=== PATIENT | female | born 1940 | race Two or more races ===

== ENCOUNTER 2020-02-04 16:17 | Inpatient (IN) | payer OTHER ==
[~2020-02-04] VITALS: Ht 190.5 cm; Wt 87.2 kg
[2020-02-04] MEDS ORDERED: Z GUARD REMEDY PASTE 57 GM TUBE TOP PRN (20:00)
[2020-02-04] MEDS ORDERED: MAGNESIUM HYDROXIDE 30 ML LIQUID UDC PO PRN (20:15)
[2020-02-04] MEDS ORDERED: AMLO10TA7 PO (20:56)
[2020-02-04] MEDS ORDERED: AMOX500C2 PO (20:57)
[2020-02-04 20:58] VITALS: BP 127/59
[2020-02-04] MEDS ORDERED: CLAR-45 PO (20:58)
[2020-02-04] MEDS ORDERED: VALSARTAN 160 MG TABLET PO SCH (21:00)
[2020-02-04] MEDS ORDERED: MEMANTINE HCL 10 MG TABLET PO SCH (21:00)
[2020-02-04] MEDS ORDERED: VALS160T2 PO (21:04)
[2020-02-04] MEDS ORDERED: PANT40TA2 PO (21:04)
[2020-02-04] MEDS ORDERED: MAGN400O6 PO (21:04)
[2020-02-04] MEDS ORDERED: METH4TAB17 PO (21:04)
[2020-02-04] MEDS ORDERED: CHOL200013 (21:07)
[2020-02-04] MEDS ORDERED: DONE10TA11 PO (21:07)
[2020-02-04] MEDS ORDERED: SITA100T PO (21:07)
[2020-02-04] MEDS ORDERED: MEMA10TA PO (21:07)
--- NOTE | 2020-02-04 23:05 | NUR ---
per ady in pharmacy to give methylprednisolone 4mg bid tomorrow then 1 dose daily to complete methylprednisolone roshan.
--- NOTE | 2020-02-04 23:58 | NUR ---
received a 79 yr old female admitted from [facility] with diagnosis of bowel perforation. S/P explor-laparoscopy,total colectomy. AAOx3-4 Hx of HTN, DM, hyperlipidemia, morbid obesity, dementia. Abdominal dressing intact. Patient has right sided ileostomy with soft brownish liquidy stool noted. On contact isolation, ESBL in urine. VSS. Needs attended. Skin intact. Dr Phillips aware of patient's admission. Dr. Muhammad (admitting) aware of patient's admission to Room 323 to reconcile orders. Fall precautions maintained. Patient has a right upper arm PICC triple lumen. Call alas within reach. Siderails up for safety.patient incontinent of urine. Kept clean and dry. Will monitor patient.
[2020-02-05 03:55] VITALS: BP 144/69
--- NOTE | 2020-02-05 06:20 | NUR ---
End of shift note: Slept at short intervals. no distress noted. Voiding well in the bedpan. Right ileostomy draining liquidy stool. I & O monitor. No complaints presented during shift. Kept comfortable. VSS.
--- NOTE | 2020-02-05 06:48 | NUR ---
patient has been having crying spells on and off this shift. Patient was very adamant of going home although explained it to her that she is here for rehab. She said she wanted to see her daughter. Patient keeps on crying. Told her we will get in touch with your daughter.
[2020-02-05] MEDS ORDERED: PANTOPRAZOLE SODIUM 40 MG TABLET.DR PO SCH (07:00)
[2020-02-05 08:03] VITALS: BP 134/63
[2020-02-05 08:36] LABS: BASOPHILS % (AUTO) 0.2 % (0.0-2.0); EOSINOPHILS % (AUTO) 0.3 % (0.0-7.0); HEMATOCRIT 32.9 % (31.2-41.9); HEMOGLOBIN 10.7 g/dL (10.9-14.3); LYMPHOCYTES # (AUTO) 1.6 K/uL (20.0-40.0); LYMPHOCYTES % (AUTO) 11.4 % (20.5-51.5); MEAN CORPUSCULAR HGB CONC 32 g/dL (32.3-35.6); MEAN CORPUSCULAR VOLUME 86.4 fL (75.5-95.3); MONOCYTES # (AUTO) 1.5 K/uL (2.0-10.0); MONOCYTES % (AUTO) 10.8 % (0.0-11.0); NEUTROPHILS # (AUTO) 10.6 K/uL (1.8-8.9); NEUTROPHILS % (AUTO) 77.3 % (38.5-71.5); PLATELET COUNT (AUTO) 487 K/uL (179-408); RED BLOOD CELL COUNT(AUTO) 3.81 MIL/uL (3.63-4.92); WHITE BLOOD COUNT (AUTO) 13.7 K/uL (3.8-11.8)
[2020-02-05 08:42] LABS: MAGNESIUM 1.6 mg/dL (1.8-2.4); PHOSPHOROUS 2.9 mg/dL (2.5-4.9); POTASSIUM 4.5 mmol/L (3.5-5.1)
[2020-02-05] MEDS ORDERED: methylPREDNISolone 4 MG TABLET PO ONE ×3 (09:00→17:00)
[2020-02-05] MEDS ORDERED: CLARITHROMYCIN 250 MG TABLET PO SCH (09:00)
[2020-02-05] MEDS ORDERED: AMLODIPINE 10 MG TABLET PO SCH (09:00)
[2020-02-05] MEDS ORDERED: methylPREDNISolone 4 MG TABLET PO SCH (09:00)
[2020-02-05] MEDS ORDERED: AMOXICILLIN-CLAVUL 500-125MG TABLET PO SCH (09:00)
[2020-02-05] MEDS ORDERED: DONEPEZIL 10 MG TABLET PO SCH (09:00)
[2020-02-05] MEDS ORDERED: CHOLECALCIFEROL 400 UNITS TABLET PO SCH (09:00)
[2020-02-05] MEDS ORDERED: MAGNESIUM HYDROXIDE 30 ML LIQUID UDC PO SCH (12:00)
[2020-02-05] MEDS ORDERED: PRED2.5T PO (12:10)
[2020-02-05] MEDS ORDERED: MAGNESIUM OXIDE 400 MG TABLET PO ONE (12:15)
--- NOTE | 2020-02-05 13:45 | NUR ---
Pt received, crying about wanting to be discharged. Plan of care discussed with Pt. Pt denies pain, no acute distress or SOB noted. Able to make needs known. Assisted to void using urinal. VSS. All comfort and safety needs implemented at this time. Medications reconciled by MD. New orders received. Call light placed within reach. Change of assignment report and endorsements given to day shift RN.
--- NOTE | 2020-02-05 13:57 | NUR ---
Pt returned as a change of assignment. No acute distress at this time. Will continue to monitor.
[2020-02-05] MEDS: CLINDAMYCIN HCL 300 MG CAPSULE PO SCH ×2 (14:23→21:16)
[2020-02-05 15:51] VITALS: BP 156/69
[2020-02-05] MEDS: AMOXIcillin 500 MG CAPSULE PO SCH (16:42)
[2020-02-05] MEDS: PANTOPRAZOLE SODIUM 40 MG TABLET.DR PO SCH (16:42)
[2020-02-05] MEDS: predniSONE 5 MG TABLET PO SCH (16:42)
[2020-02-05] MEDS ORDERED: predniSONE 2.5 MG TABLET PO SCH (17:00)
[2020-02-05] MEDS ORDERED: CLARITHROMYCIN PO SCH (17:00)
[2020-02-05 20:20] VITALS: BP 130/66
[2020-02-05] MEDS: MEMANTINE HCL 10 MG TABLET PO SCH (20:21)
[2020-02-05] MEDS: VALSARTAN 160 MG TABLET PO SCH (20:21)
--- NOTE | 2020-02-05 21:38 | NUR ---
awake alert and oriented x3-4 VSS no acute distress noted. Attended to needs. Tolerated po meds well. on po antibiotic given as scheduled. No ill effects noted. Right side ileostomy intact with brownish stools noted. Voiding well in bedpan. Contact isolation maintained, for ESBL in urine. VSS. Kept comfortable. Will monitor patient. Abdominal dressing clean dry and intact. Denies any pain nor any discomfort.
[2020-02-06 05:10] VITALS: BP 142/73
[2020-02-06] MEDS: CLINDAMYCIN HCL 300 MG CAPSULE PO SCH ×3 (05:37→21:33)
[2020-02-06 06:27] LABS: BASOPHILS % (AUTO) 0.1 % (0.0-2.0); EOSINOPHILS % (AUTO) 0.4 % (0.0-7.0); HEMATOCRIT 32.2 % (31.2-41.9); HEMOGLOBIN 10.5 g/dL (10.9-14.3); LYMPHOCYTES # (AUTO) 1.5 K/uL (20.0-40.0); LYMPHOCYTES % (AUTO) 12.2 % (20.5-51.5); MEAN CORPUSCULAR HEMOGLOBIN 28.2 uug (24.7-32.8); MEAN CORPUSCULAR HGB CONC 33 g/dL (32.3-35.6); MEAN CORPUSCULAR VOLUME 86.8 fL (75.5-95.3); MONOCYTES # (AUTO) 1.3 K/uL (2.0-10.0); MONOCYTES % (AUTO) 10.3 % (0.0-11.0); NEUTROPHILS # (AUTO) 9.4 K/uL (1.8-8.9); PLATELET COUNT (AUTO) 429 K/uL (179-408); WHITE BLOOD COUNT (AUTO) 12.2 K/uL (3.8-11.8)
--- NOTE | 2020-02-06 06:30 | NUR ---
End of shift note: Patient slept at short intervals. Sleepin on and off. Needs attended. Voiding well in bedpan. No BM noted this shift. VSS. Patient been having episodes of crying spells this am. Expressed that she wanted to go home. Explained to her the need of her here for rehab. Will monitor patient.
[2020-02-06 06:51] LABS: BILIRUBIN,TOTAL 0.4 mg/dL (0.2-1.0); MAGNESIUM 1.6 mg/dL (1.8-2.4); PHOSPHOROUS 3.1 mg/dL (2.5-4.9); POTASSIUM 4.1 mmol/L (3.5-5.1); TOTAL PROTEIN, SERUM 5.7 g/dL (6.4-8.2)
[2020-02-06] MEDS ORDERED: methylPREDNISolone 4 MG TABLET PO ONE (08:00)
[2020-02-06] MEDS ORDERED: MAGNESIUM OXIDE 400 MG TABLET PO ONE (08:30)
[2020-02-06] MEDS: MEMANTINE HCL 10 MG TABLET PO SCH ×2 (09:03→20:56)
[2020-02-06] MEDS: VALSARTAN 160 MG TABLET PO SCH ×2 (09:03→20:56)
[2020-02-06] MEDS: AMLODIPINE 10 MG TABLET PO SCH (09:03)
[2020-02-06] MEDS: predniSONE 5 MG TABLET PO SCH ×2 (09:03→17:13)
[2020-02-06] MEDS: AMOXIcillin 500 MG CAPSULE PO SCH ×2 (09:04→17:13)
[2020-02-06] MEDS: PANTOPRAZOLE SODIUM 40 MG TABLET.DR PO SCH ×2 (09:04→17:13)
[2020-02-06 11:33] VITALS: BP 110/57
--- NOTE | 2020-02-06 15:06 | NUR ---
Patient seen and examined by EDWARD Guidry for S/P Explore Lap/Peritonitis. Cleanse with betadine and cover with surgical. small drainage of white/red color noted. no foul smell noted. Continue ATB therapy for infection. not in distress. will continue monitor
[2020-02-06 16:00] VITALS: BP 139/66
[2020-02-06 21:05] VITALS: BP 133/53
--- NOTE | 2020-02-06 21:05 | NUR ---
awake alert and oriented x3-4 no acute distress noted.needs attended. abdominal dressing clean dry and intact. Right side ileostomy intact functioning well, with brownish stools noted. Voiding well in the bedpan. Kept comfortable. ABT given as ordered. No ill effects noted. VSS.
[2020-02-07 04:37] VITALS: BP 138/61
[2020-02-07] MEDS: CLINDAMYCIN HCL 300 MG CAPSULE PO SCH ×3 (05:38→21:26)
[2020-02-07 06:07] LABS: BASOPHILS % (AUTO) 0.2 % (0.0-2.0); EOSINOPHILS # (AUTO) 0.1 K/uL (0.0-0.7); HEMOGLOBIN 10.2 g/dL (10.9-14.3); LYMPHOCYTES # (AUTO) 1.1 K/uL (20.0-40.0); MEAN CORPUSCULAR HEMOGLOBIN 28.7 uug (24.7-32.8); MEAN CORPUSCULAR HGB CONC 33 g/dL (32.3-35.6); MEAN CORPUSCULAR VOLUME 87.4 fL (75.5-95.3); MONOCYTES # (AUTO) 0.9 K/uL (2.0-10.0); MONOCYTES % (AUTO) 9.8 % (0.0-11.0); NEUTROPHILS # (AUTO) 6.8 K/uL (1.8-8.9); PLATELET COUNT (AUTO) 356 K/uL (179-408); RED BLOOD CELL COUNT(AUTO) 3.55 MIL/uL (3.63-4.92); WHITE BLOOD COUNT (AUTO) 8.8 K/uL (3.8-11.8)
--- NOTE | 2020-02-07 06:21 | NUR ---
End of the shift note: AOx3-4 slept well throughout the night, Denies any pain nor any discomfort.Rt PICC intact flushed and patent. Kept comfortable. VSS.
[2020-02-07 06:26] LABS: CREATININE 0.9 mg/dL (0.6-1.3); MAGNESIUM 1.7 mg/dL (1.8-2.4); PHOSPHOROUS 3.5 mg/dL (2.5-4.9)
[2020-02-07 08:00] VITALS: BP 136/65
[2020-02-07] MEDS: VALSARTAN 160 MG TABLET PO SCH ×2 (09:33→20:39)
[2020-02-07] MEDS: MEMANTINE HCL 10 MG TABLET PO SCH ×2 (09:33→20:38)
[2020-02-07] MEDS: predniSONE 5 MG TABLET PO SCH ×2 (09:34→17:23)
[2020-02-07] MEDS: AMLODIPINE 10 MG TABLET PO SCH (09:34)
[2020-02-07] MEDS: PANTOPRAZOLE SODIUM 40 MG TABLET.DR PO SCH ×2 (09:35→17:23)
[2020-02-07] MEDS: AMOXIcillin 500 MG CAPSULE PO SCH ×2 (09:35→17:24)
[2020-02-07] MEDS ORDERED: MAGNESIUM OXIDE 400 MG TABLET PO ONE (12:30)
--- NOTE | 2020-02-07 13:42 | NUR ---
INDIVIDUALIZED PLAN OF CARE
--- NOTE | 2020-02-07 14:38 | NUR ---
INTERDISCIPLINARY TEAM CONFERENCE
--- NOTE | 2020-02-07 14:56 | NUR ---
SPOKE TO DR JAMMIE CHAVEZ FOR ABDOMINAL INCISION SITE IS NOT WELL APPROXIMATED, PER ITS LEFT LIKE THIS INTENSIONALY, HOWEVER USE ABDOMINAL BIND, CUT THE HOLE TO HANGE OUT THE ILEOSTOMY TO DRAIN, NO DRAINGE NOTED AT INCISION SITE BUT NOT WELL APPROXIMATED. CONTINUE TO MONITOR Addendum: 02/07/20 at 1856 by ROSELYN JAFFE RN RN use abdominal binder , cut hole into abdominal binder to hang out the ileotomy drainage, mid abdominal incision site is 25cm long.
[2020-02-07 16:07] VITALS: BP 131/56
--- NOTE | 2020-02-07 19:45 | NUR ---
Awake, in bed, denies any pain/discomforts at this time. Abdominal binder in placed. Safety measures and fall precaution maintained. Continue care as planned.
[2020-02-07 20:54] VITALS: BP 97/76
[2020-02-08 05:06] VITALS: BP 127/64
[2020-02-08] MEDS: CLINDAMYCIN HCL 300 MG CAPSULE PO SCH ×3 (05:20→21:04)
--- NOTE | 2020-02-08 05:52 | NUR ---
Shift End Report: BP 127/64. Slept well. No complaint presented all night. Voided well per bedpan in moderate amount. All needs attended and met. Continue current plan of care.
[2020-02-08 07:55] VITALS: BP 138/70
[2020-02-08] MEDS: AMOXIcillin 500 MG CAPSULE PO SCH ×2 (08:51→17:38)
[2020-02-08] MEDS: predniSONE 5 MG TABLET PO SCH (08:51)
[2020-02-08] MEDS: PANTOPRAZOLE SODIUM 40 MG TABLET.DR PO SCH ×2 (08:52→17:38)
[2020-02-08] MEDS: VALSARTAN 160 MG TABLET PO SCH ×2 (08:52→20:32)
[2020-02-08] MEDS: MEMANTINE HCL 10 MG TABLET PO SCH ×2 (08:52→20:32)
[2020-02-08] MEDS: AMLODIPINE 10 MG TABLET PO SCH (08:53)
--- NOTE | 2020-02-08 10:06 | NUR ---
Patient noted resting in bed, took all am medications, no complaints of pain, no signs of distress noted, call light in reach, bed locked and in lowest position, all needs met
[2020-02-08 15:58] VITALS: BP 126/62
--- NOTE | 2020-02-08 19:45 | NUR ---
Received patient in bed. AAO x3. No acute distress or SOB was noted. Korean speaking but can communicate a little in Tunisian. No complain of pain at this time. On room air. Physical assessment done. safety measures maintain, fall prevention observed. Skin assessed. Abdominal binder covered surgical site. Ileostomy placed on right side of abdomen. Bed in locked and low position, side rails up x2 for safety, bed alarm on. Call light and frequently using items within reach. Continue to monitor.
[2020-02-08 20:27] VITALS: BP 138/71
[2020-02-08] MEDS: ZOLPIDEM 5 MG TABLET PO SCH (22:14)
--- NOTE | 2020-02-08 23:05 | NUR ---
Patient complained of having problem for sleeping and ask for sleeping pills. Contacted [facility] on-call doctor and received order of Ambien [address] Muhammad. Administered medication. Continue to monitor.
[2020-02-09 05:11] VITALS: BP 135/65
[2020-02-09] MEDS: CLINDAMYCIN HCL 300 MG CAPSULE PO SCH ×3 (05:32→21:01)
--- NOTE | 2020-02-09 06:26 | NUR ---
End of the shift note: Patient was stable during the shift and had a good sleep last night with the help of Ambien 5 mg. No acute distress or SOB was noted. No complain of pain. On room air. All medications administered and well tolerated. Physical assessment done. safety measures maintain, fall prevention observed. Skin assessed. Abdominal surgical dressing changed. All needs attended promptly. Bed in locked and low position, side rails up x2 for safety, bed alarm on. Call light and frequently using items within reach. Continue to monitor and will endorse to the day shift nurse accordingly.
--- NOTE | 2020-02-09 07:30 | NUR ---
Patient noted resting in bed with eyes closed, abdominal binder in place, no complaints of pain, no signs of distress noted, call light in reach, bed locked and in lowest position, all needs met at this time
[2020-02-09 08:00] VITALS: BP 109/51
[2020-02-09] MEDS: AMLODIPINE 10 MG TABLET PO SCH (09:00)
[2020-02-09] MEDS: VALSARTAN 160 MG TABLET PO SCH ×2 (09:00→20:14)
[2020-02-09] MEDS: MEMANTINE HCL 10 MG TABLET PO SCH ×2 (09:22→20:14)
[2020-02-09] MEDS: PANTOPRAZOLE SODIUM 40 MG TABLET.DR PO SCH ×2 (09:22→17:26)
[2020-02-09] MEDS: AMOXIcillin 500 MG CAPSULE PO SCH ×2 (09:22→17:26)
[2020-02-09 15:40] VITALS: BP 133/63
--- NOTE | 2020-02-09 19:36 | NUR ---
Received patient in bed while sleeping. No acute distress or SOB was noted. Does not seem having pain at this time. On room air. Physical assessment done. safety measures maintain, fall prevention observed. Skin assessed. Abdominal binder covered surgical site. Ileostomy placed on right side of abdomen. Bed in locked and low position, side rails up x2 for safety, bed alarm on. Call light and frequently using items within reach. Continue to monitor.
[2020-02-09] MEDS: ZOLPIDEM 5 MG TABLET PO SCH (20:14)
[2020-02-09 20:23] VITALS: BP 141/68
[2020-02-10 04:22] VITALS: BP 138/70
[2020-02-10] MEDS: CLINDAMYCIN HCL 300 MG CAPSULE PO SCH ×3 (05:05→21:27)
--- NOTE | 2020-02-10 05:27 | NUR ---
End of the shift note: Patient was stable during the shift and had a good sleep last night with the help of Ambien 5 mg. No acute distress or SOB was noted. No complain of pain. On room air. All medications administered and well tolerated. Physical assessment done. safety measures maintain, fall prevention observed. Skin assessed. Ileostomy bag was emptied. Abdominal surgical dressing changed. All needs attended promptly. Bed in locked and low position, side rails up x2 for safety, bed alarm on. Call light and frequently using items within reach. Continue to monitor and will endorse to the day shift nurse accordingly.
[2020-02-10 08:00] VITALS: BP 82/35
[2020-02-10] MEDS: AMLODIPINE 10 MG TABLET PO SCH (09:00)
[2020-02-10] MEDS: VALSARTAN 160 MG TABLET PO SCH ×2 (09:00→21:00)
[2020-02-10] MEDS: MEMANTINE HCL 10 MG TABLET PO SCH ×2 (09:09→21:26)
[2020-02-10] MEDS: AMOXIcillin 500 MG CAPSULE PO SCH ×2 (09:09→16:00)
[2020-02-10] MEDS: PANTOPRAZOLE SODIUM 40 MG TABLET.DR PO SCH ×2 (09:09→16:00)
[2020-02-10 16:34] VITALS: BP 137/58
--- NOTE | 2020-02-10 17:52 | NUR ---
abdominal incision cleansed with Betadine and dressed with surgical dressings, ileostomy bag changed at this time due to leakage, abdominal binder intact, all needs met at this time
[2020-02-10 20:10] VITALS: BP 109/54
[2020-02-10] MEDS: ZOLPIDEM 5 MG TABLET PO SCH (21:26)
[2020-02-11 04:10] VITALS: BP_SYST 131; BP_SYST 132; BP_DIAS 58; BP_DIAS 63
[2020-02-11 06:22] LABS: CREATININE 1.1 mg/dL (0.6-1.3); MAGNESIUM 1.6 mg/dL (1.8-2.4); PHOSPHOROUS 3.9 mg/dL (2.5-4.9); POTASSIUM 4.3 mmol/L (3.5-5.1)
[2020-02-11] MEDS: CLINDAMYCIN HCL 300 MG CAPSULE PO SCH (06:24)
[2020-02-11 06:55] LABS: HEMOGLOBIN 9.7 g/dL (10.9-14.3); WHITE BLOOD COUNT (AUTO) 7.5 K/uL (3.8-11.8)
[2020-02-11 07:06] LABS: BASOPHILS # (AUTO) 0.1 K/uL (0.0-8.0); BASOPHILS % (AUTO) 0.8 % (0.0-2.0); EOSINOPHILS # (AUTO) 0.1 K/uL (0.0-0.7); LYMPHOCYTES # (AUTO) 1.2 K/uL (20.0-40.0); LYMPHOCYTES % (AUTO) 15.5 % (20.5-51.5); MEAN CORPUSCULAR HEMOGLOBIN 29.3 uug (24.7-32.8); MEAN CORPUSCULAR HGB CONC 33 g/dL (32.3-35.6); MEAN CORPUSCULAR VOLUME 87.7 fL (75.5-95.3); MONOCYTES # (AUTO) 0.7 K/uL (2.0-10.0); MONOCYTES % (AUTO) 9.4 % (0.0-11.0); NEUTROPHILS # (AUTO) 5.4 K/uL (1.8-8.9); NEUTROPHILS % (AUTO) 72.3 % (38.5-71.5); RED BLOOD CELL COUNT(AUTO) 3.31 MIL/uL (3.63-4.92)
[2020-02-11 07:07] LABS: PLATELET COUNT (AUTO) 210 K/uL (179-408)
[2020-02-11 08:00] VITALS: BP 120/64
[2020-02-11] MEDS: VALSARTAN 160 MG TABLET PO SCH ×2 (08:30→20:23)
[2020-02-11] MEDS: PANTOPRAZOLE SODIUM 40 MG TABLET.DR PO SCH ×2 (08:30→16:54)
[2020-02-11] MEDS: MEMANTINE HCL 10 MG TABLET PO SCH ×2 (08:31→20:19)
[2020-02-11] MEDS: AMLODIPINE 10 MG TABLET PO SCH (08:31)
[2020-02-11] MEDS: AMOXIcillin 500 MG CAPSULE PO SCH (08:32)
[2020-02-11] MEDS ORDERED: MAGNESIUM OXIDE 400 MG TABLET PO ONE (12:30)
[2020-02-11 14:11] LABS: THYROID STIMULATING HORMONE 3.243 mIU/mL (0.358-3.740)
[2020-02-11 14:30] LABS: BILIRUBIN,DIRECT 0.1 mg/dL (0.0-0.2); BILIRUBIN,TOTAL 0.4 mg/dL (0.2-1.0); TOTAL PROTEIN, SERUM 5.5 g/dL (6.4-8.2)
[2020-02-11 16:00] VITALS: BP 104/50
[2020-02-11] MEDS ORDERED: DEXTROSE 50% 50 ML DISP.SYRIN IV PRN (16:30)
[2020-02-11] MEDS: BLOOD SUGAR DIAGNOSTIC 1 EACH STRIP VI SCH ×2 (16:54→20:25)
[2020-02-11] MEDS: INSULIN REGULAR, HUMAN 300 UNIT/3 ML VIAL SQ PRN ×2 (16:55→20:28)
[2020-02-11] MEDS: METFORMIN HCL 500 MG TABLET PO SCH (17:02)
--- NOTE | 2020-02-11 17:29 | NUR ---
Patient magnesium 1.6 lab result replace magnesium oxide PO as ordered. Change dressing and cleanse for s/p explore lap. healing well. not in distress. Patient new order accucheck and coverage given. tolerated well. Continue therapy for therapeutic exercise, strenght and endurance. will continue monitor
[2020-02-11 20:12] VITALS: BP 122/56
[2020-02-11] MEDS: ZOLPIDEM 5 MG TABLET PO SCH (20:19)
--- NOTE | 2020-02-12 00:15 | NUR ---
awake alert and oriented x3-4 no acute distress noted. VSS. needs attended. Compliant with meds and care. Right side ileostomy functioning well, with greenish liquidy stool noted. I & O monitor. Kept comfortable. Abdominal wound dressing done as needed, bren out, cleansed with betadine and apply borderline gauze dressing and abdominal binder in placed. Denies any pain nor any discomfort. No acute distress noted. Rt PICC intact flushed and patent. Voiding freely in the bedpan. Fall precautions maintained. Siderails up for safety.
[2020-02-12 04:12] VITALS: BP 108/54
[2020-02-12] MEDS: PANTOPRAZOLE SODIUM 40 MG TABLET.DR PO SCH (07:00)
[2020-02-12] MEDS: METFORMIN HCL 500 MG TABLET PO SCH ×2 (08:00→17:33)
[2020-02-12 08:55] VITALS: BP 111/62
[2020-02-12] MEDS: BLOOD SUGAR DIAGNOSTIC 1 EACH STRIP VI SCH ×4 (09:04→21:40)
[2020-02-12] MEDS: MEMANTINE HCL 10 MG TABLET PO SCH ×2 (09:05→21:56)
[2020-02-12] MEDS: VALSARTAN 160 MG TABLET PO SCH ×2 (09:08→21:00)
[2020-02-12] MEDS: AMLODIPINE 5 MG TABLET PO SCH (09:08)
[2020-02-12] MEDS: INSULIN REGULAR, HUMAN 300 UNIT/3 ML VIAL SQ PRN ×4 (09:13→21:48)
--- NOTE | 2020-02-12 14:14 | NUR ---
Stool sample collected and sent down to lab.
--- NOTE | 2020-02-12 14:14 | NUR ---
Pt seen by REGIONAL OWNER OPERATOR TRUCK DRIVER, abdominal bren removed, orders to continue dressing care as ordered discussed. Photos taken of incisions following staple removal. New dressings applied. Ostomy emptied and sample collected. Abdominal binder placed. Call light within reach. Will continue to monitor.
[2020-02-12 14:43] LABS: *OCCULT BLOOD STOOL NEGATIVE (NEGATIVE)
[2020-02-12 15:23] VITALS: BP 88/48
--- NOTE | 2020-02-12 19:48 | NUR ---
Received patient in bed. AAO x3. No acute distress or SOB was noted. Arabic speaking but can communicate a little in Anguillan. No complain of pain at this time. On room air. Physical assessment done. safety measures maintain, fall prevention observed. Skin assessed. Abdominal binder covered surgical site. Ileostomy placed on right side of abdomen. Triple lumen PICC line in right upper arm, no sign of inflammation. Bed in locked and low position, side rails up x2 for safety, bed alarm on. Call light and frequently using items within reach. Continue to monitor.
[2020-02-12 20:10] VITALS: BP 106/54
[2020-02-12] MEDS: ZOLPIDEM 5 MG TABLET PO SCH (21:00)
--- NOTE | 2020-02-12 21:00 | NUR ---
Valsartan 160 mg tab was held because of low BP: 98/52, HR: 87. No other symptoms presented. Encouraged patient to have more fluid. Put the patient on Trendelenburg position. Charge nurse was aware. Continue to monitor.
--- NOTE | 2020-02-12 21:40 | NUR ---
Ambien 5 mg tab was not administered because the patient had already slept. Continue to monitor.
[2020-02-13] MEDS: PANTOPRAZOLE SODIUM 40 MG TABLET.DR PO SCH (06:00)
[2020-02-13] MEDS: BLOOD SUGAR DIAGNOSTIC 1 EACH STRIP VI SCH ×4 (06:38→21:00)
[2020-02-13 06:56] LABS: *BILIRUBIN,URIN NEGATIVE (NEGATIVE); *BLOOD, URINE NEGATIVE (NEGATIVE); *KETONES,URINE NEGATIVE (NEGATIVE); *UROBILINOGEN,URINE 0.2 E.U./dl (NORMAL); LEUKOCYTE ESTERASE ,URINE NEGATIVE (NEGATIVE); NITRITE, URINE NEGATIVE (NEGATIVE); PH,URINE 5.5 (5.0-8.0); UGLUCOSE NEGATIVE (NEGATIVE)
[2020-02-13 07:01] LABS: *CLARITY,URINE CLEAR (CLEAR); *COLOR,URINE DARK YELLOW (YELLOW)
[2020-02-13 08:00] VITALS: BP 111/56
[2020-02-13] MEDS: AMLODIPINE 5 MG TABLET PO SCH (09:00)
[2020-02-13] MEDS: VALSARTAN 160 MG TABLET PO SCH (09:00)
[2020-02-13] MEDS: METFORMIN HCL 500 MG TABLET PO SCH ×2 (09:25→18:06)
[2020-02-13] MEDS: MEMANTINE HCL 10 MG TABLET PO SCH ×2 (09:25→21:12)
[2020-02-13] MEDS: INSULIN REGULAR, HUMAN 300 UNIT/3 ML VIAL SQ PRN ×2 (12:00→21:16)
[2020-02-13 16:00] VITALS: BP 104/50
--- NOTE | 2020-02-13 18:06 | NUR ---
Patient in bed at this time and wataching TV. Patient is A/O x2-3, able to express self at times. No acute distress noted. VS stable for patient. PICC line on right upper arm intact and patent. NO c/o pain at this time. Due medications administered as ordered and scheduled. Pt. on continuos PT/OT therapy. patient stayed in bed for most of the shift. patient also noted with poor appetite. Encouraged to eat and also offered and encouraged fluids. Patient able to tolerate Jellos and juice. Surgical site on abdominal site intact and dry, Ileostomy draining well. Skin kept clean and dry. All other needs attended, safety measures in place and will continue with care.
[2020-02-13 20:19] VITALS: BP 104/54
[2020-02-13] MEDS: ZOLPIDEM 5 MG TABLET PO SCH (21:12)
[2020-02-14 04:00] VITALS: BP 91/43
[2020-02-14] MEDS: PANTOPRAZOLE SODIUM 40 MG TABLET.DR PO SCH (06:07)
[2020-02-14] MEDS: BLOOD SUGAR DIAGNOSTIC 1 EACH STRIP VI SCH ×4 (06:33→20:12)
--- NOTE | 2020-02-14 07:22 | NUR ---
Pt resting comfortably in bed upon receiving into shift and watching TV. No acute respiratory distress noted. A&O x 3 and forgetful. Pashto speaking. Able to communicate needs to staff. Ileostomy in place and draining liquid brown stools. Emptied often throughout the shift. Pt changed by BOOSTER OPERATOR 3 times for incontinent urine. Pt denies any pain. Slept well throughout the night. Drsg to mid abdomen D&I. PICC line to REGAN patent, Drsg is C,D&I. No voiced concerns.
[2020-02-14 07:49] VITALS: BP 97/51
[2020-02-14] MEDS: VALSARTAN 80 MG TABLET PO SCH ×2 (09:00→20:13)
[2020-02-14] MEDS: METFORMIN HCL 500 MG TABLET PO SCH ×2 (09:09→17:27)
[2020-02-14] MEDS: MEMANTINE HCL 10 MG TABLET PO SCH ×2 (09:11→20:16)
[2020-02-14] MEDS: glipiZIDE 5 MG TABLET PO SCH ×2 (10:21→17:10)
--- NOTE | 2020-02-14 15:06 | NUR ---
INTERDISCIPLINARY TEAM CONFERENCE
[2020-02-14 16:18] VITALS: BP 109/60
--- NOTE | 2020-02-14 17:30 | NUR ---
EVENING BS 115 GLIPIZIDE GIVEN. REFUSED TO EAT DINNER 1800 GLUCOPHAGE HELD
[2020-02-14 20:06] VITALS: BP 106/64
[2020-02-14] MEDS: ZOLPIDEM 5 MG TABLET PO SCH (20:17)
--- NOTE | 2020-02-14 23:02 | NUR ---
PATIENT IS IN BED, ASLEEP AT THIS TIME BUT EASILY AROUSABLE WITH CALLING OF NAME. ALERT AND VERBALLY RESPONSIVE, ABLE TO MAKE NEEDS KNOWN AND FOLLOW SIMPLE COMMANDS. RESPIRATIONS EVEN AND UNLABORED ON ROOM AIR. PICC LINE AT RIGHT UPPER ARM INTACT AND PATENT WITH NO S/S INFECTION. PATIENT WITH ABDOMINAL BINDER ON AND WITH ILEOSTOMY INTACT AND DRAINING SOFT BROWN STOOL. ABDOMINAL DRESSING INTACT. WILL CONTINUE TO MONITOR PATIENT. FALL AND SAFETY PRECAUTIONS OBSERVED. WILL CONTINUE TO ANTICIPATE AND ATTEND TO PATIENT'S NEEDS.
--- NOTE | 2020-02-15 05:10 | NUR ---
PATIENT SLEPT WELL THROUGH THE NIGHT. NO COMPLAINTS OF PAIN. BEDTIME BS RESULT WAS 87. NO CHANGES IN MENTATION. NO S/S HYPOGLYCEMIA OBSERVED THROUGH THE NIGHT. PROVIDED NOURISHMENT/ SNACK FOR PATIENT, TOLERATED WELL. EMPTIED ILEOSTOMY POUCH WITH 300ML OF BROWN SOFT LIQUID STOOL. REMAINS WITH ABDOMINAL BINDER IN PLACE. FALL AND SAFETY PRECAUTIONS OBSERVED. ALL NEEDS ATTENDED.
[2020-02-15] MEDS: PANTOPRAZOLE SODIUM 40 MG TABLET.DR PO SCH (06:11)
[2020-02-15 06:37] VITALS: BP 115/63
[2020-02-15] MEDS: BLOOD SUGAR DIAGNOSTIC 1 EACH STRIP VI SCH ×2 (06:58→11:53)
[2020-02-15] MEDS: glipiZIDE 5 MG TABLET PO SCH ×2 (06:58→17:21)
[2020-02-15] MEDS: INSULIN REGULAR, HUMAN 300 UNIT/3 ML VIAL SQ PRN ×2 (08:05→11:55)
[2020-02-15] MEDS: MEMANTINE HCL 10 MG TABLET PO SCH ×2 (08:24→21:23)
[2020-02-15] MEDS: METFORMIN HCL 500 MG TABLET PO SCH ×2 (08:24→17:21)
[2020-02-15] MEDS: VALSARTAN 80 MG TABLET PO SCH ×2 (08:25→21:23)
[2020-02-15 08:37] VITALS: BP 114/61
--- NOTE | 2020-02-15 09:00 | NUR ---
AWAKE ALERT AND VERBALLY RESPONDS NO S/S OF HYPO/HYPERGLYCEMIC REACTIONS AT THIS TIME APPETITE REMAINS POOR ENCOURAGED AND ASSISTED NEEDED MID ABD INCISION REMAINS INTACT WITH ABD BINDER WITH ILLEOSTOMY INTACT WITH LIQUID DRAINAGE. CALL LIGHTS AND PERSONAL BELONGINGS ARE WITHIN EASY REACH MADE COMFORTABLE AND WILL CONTINUE TO OBSERVE
--- NOTE | 2020-02-15 09:00 | NUR ---
PATIENT SEEN AND EXAMINED BY PATTIY SURGICAL PHOSPHORUS PROCESSING SUPERVISOR WITH NO NEW ORDERS AT THIS TIME.
[2020-02-15 16:19] VITALS: BP 104/55
--- NOTE | 2020-02-15 18:00 | NUR ---
APPETITE REMAINS POOR ENCOURAGED AND ASSISTED TO EAT MUCH POSSIBLE AND SHE EXPRESSED UNDERSTANDING WILL CONTINUE TO OBSERVE.
--- NOTE | 2020-02-15 21:00 | NUR ---
AWAKE ALERT PASSIVE RESPONDS WHEN SPOKEN TO DENIES PAIN OR DISCOMFORTS AT THIS TIME ALL NEEDS ANTICIPATED AND SATISFIED.DUE MEDICATIONS TOLERATED WELL MADE COMFORTABLE WILL CONTINUE TO OBSERVE
[2020-02-15] MEDS: ZOLPIDEM 5 MG TABLET PO SCH (21:23)
[2020-02-15 22:37] VITALS: BP 122/71
[2020-02-16 03:24] VITALS: BP 92/56
--- NOTE | 2020-02-16 03:24 | NUR ---
BLOOD PRESSURE AT THIS TIME IS 92/54 PATIENT IS ALERT AND DENIES ANY DISCOMFORTS. FLUIDS OFFERED AND TOLERATED WELL WILL CONTINUE TO OBSERVE.
[2020-02-16] MEDS: PANTOPRAZOLE SODIUM 40 MG TABLET.DR PO SCH (06:26)
--- NOTE | 2020-02-16 06:44 | NUR ---
BLOOD PRESSURE AT THIS TIME IS 99/68 FLUIDS ENCOURAGED.PATIENT INSTRUCTED TO DRINK FLUIDS MUCH POSSIBLE AND SHE EXPRESSED UNDERSTANDING
[2020-02-16 06:54] VITALS: BP 98/68
[2020-02-16] MEDS: glipiZIDE 5 MG TABLET PO SCH (07:30)
[2020-02-16] MEDS: METFORMIN HCL 500 MG TABLET PO SCH (08:00)
[2020-02-16 08:23] VITALS: BP 95/45
[2020-02-16] MEDS: VALSARTAN 80 MG TABLET PO SCH (09:00)
[2020-02-16] MEDS: MEMANTINE HCL 10 MG TABLET PO SCH (09:12)
--- NOTE | 2020-02-16 09:30 | NUR ---
Pt received resting in bed, no acute distress, no SOB, or pain noted. Pt compliant with routine medication administration. Ileostomy emptied. Poor appetite noted. Low BP of 95/45, BP medication held. All comfort and safety measures implemented. Call light within reach. Will continue to monitor.
[2020-02-16 10:45] VITALS: BP 60/33
[2020-02-16 10:50] VITALS: BP 71/45
[2020-02-16] MEDS ORDERED: IV NORMAL SALINE 500 ML IV ONE ×2 (11:00→15:00)
--- NOTE | 2020-02-16 11:10 | NUR ---
Pt BP dropped with therapy. Supine 60/33, 97 hr, then 71/45, 98 hr sitting. Pt is asymptomatic, denies dizziness. MD made aware. New orders for Bolus fluids received. Will initiate once supplies readily available. No acute distress at this time.
--- NOTE | 2020-02-16 15:09 | NUR ---
BP rechecked, still low at 92/42. MD made aware, new order received for 2nd bolus of fluids, administered. Dr. Phillips notified. No acute distress noted. Will continue to monitor and follow up.
[2020-02-16] MEDS ORDERED: MAGNESIUM HYDROXIDE 30 ML LIQUID UDC PO PRN (17:19)
[2020-02-16] MEDS ORDERED: METF-442 PO (17:26)
[2020-02-16] MEDS ORDERED: ZOLP5TAB2 PO (17:34)
[2020-02-16] MEDS ORDERED: GLIP5TAB13 PO (17:34)
[2020-02-16 21:20] VITALS: BP 106/60
== END 2020-02-16 16:10 | disposition short-term general hospital (02) | DRG 720 ==
PROVIDERS: ADMIT Physical Medicine & Rehabilitation Pain Medicine; ATTEND Physical Medicine & Rehabilitation Pain Medicine
DX: A41.9 Sepsis, unspecified organism (principal); K72.00 Acute and subacute hepatic failure without coma; N17.0 Acute kidney failure with tubular necrosis; E43 Unspecified severe protein-calorie malnutrition; R65.21 Severe sepsis with septic shock; G93.41 Metabolic encephalopathy; K65.8 Other peritonitis; K25.4 Chronic or unspecified gastric ulcer with hemorrhage; D68.59 Other primary thrombophilia; E11.65 Type 2 diabetes mellitus with hyperglycemia; K57.20 Diverticulitis of large intestine with perforation and abscess without bleeding; K81.9 Cholecystitis, unspecified; R18.8 Other ascites; D62 Acute posthemorrhagic anemia; K29.71 Gastritis, unspecified, with bleeding; Z48.815 Encounter for surgical aftercare following surgery on the digestive system; Z93.2 Ileostomy status; I10 Essential (primary) hypertension; F03.90 Unspecified dementia, unspecified severity, without behavioral disturbance, psychotic disturbance, mood disturbance, and anxiety; R53.81 Other malaise; D25.9 Leiomyoma of uterus, unspecified; E66.01 Morbid (severe) obesity due to excess calories; E78.5 Hyperlipidemia, unspecified; E83.42 Hypomagnesemia; F09 Unspecified mental disorder due to known physiological condition; E83.51 Hypocalcemia; K43.5 Parastomal hernia without obstruction or gangrene; Z68.30 Body mass index [BMI] 30.0-30.9, adult; K76.0 Fatty (change of) liver, not elsewhere classified; Z90.49 Acquired absence of other specified parts of digestive tract; R82.90 Unspecified abnormal findings in urine; R94.31 Abnormal electrocardiogram [ECG] [EKG]
CPT/HCPCS: 36415; 71045; 82652; 83550; 83735; 84100; 84443; 85025; 87086; 93005; A4217; A4663; J1815; J7030; J7040; J7509; J7512

== ENCOUNTER 2020-02-16 16:59 | Inpatient (IN) | payer OTHER ==
[~2020-02-16] VITALS: Ht 170.2 cm; Wt 87.1 kg
[~2020-02-16 16:59] MED LIST: AMLO10TA7 PO; AMOX500C2 PO; CHOL200013; CLAR-45 PO; DONE10TA11 PO; MAGN400O6 PO; MEMA10TA PO; METH4TAB17 PO; PANT40TA2 PO; PRED2.5T PO; SITA100T PO; VALS160T2 PO
[2020-02-16] MEDS ORDERED: METF-442 PO (17:26)
[2020-02-16] MEDS ORDERED: GLIP5TAB13 PO (17:34)
[2020-02-16] MEDS ORDERED: ZOLP5TAB2 PO (17:34)
[2020-02-16] MEDS ORDERED: ACETAMINOPHEN 325 MG TABLET PO PRN (17:45)
[2020-02-16] MEDS ORDERED: MAGNESIUM HYDROXIDE 30 ML LIQUID UDC PO SCH (17:45)
[2020-02-16] MEDS ORDERED: MORPHINE SULFATE 2 MG/1 ML DISP.SYRIN IV PRN (17:45)
[2020-02-16] MEDS ORDERED: ONDANSETRON 4 MG/2 ML VIAL IV PRN (17:45)
[2020-02-16] MEDS ORDERED: DEXTROSE 50% 50 ML DISP.SYRIN IV PRN (18:00)
[2020-02-16] MEDS ORDERED: METFORMIN HCL 500 MG TABLET PO SCH (18:00)
--- NOTE | 2020-02-16 18:00 | NUR ---
Pt transferred to Tele, on monitor SR, stable. Latest BP 110/49. No acute distress. Pt refused dinner and diabetes medication. Skin integrity photos taken and placed in chart. Call light placed within reach. Will continue to monitor and endorse to warehouse shift supervisor nurse.
[2020-02-16 18:28] LABS: BASOPHILS # (AUTO) 0.1 K/uL (0.0-8.0); BASOPHILS % (AUTO) 0.7 % (0.0-2.0); EOSINOPHILS # (AUTO) 0.2 K/uL (0.0-0.7); EOSINOPHILS % (AUTO) 3.3 % (0.0-7.0); HEMATOCRIT 33.1 % (31.2-41.9); HEMOGLOBIN 10.9 g/dL (10.9-14.3); LYMPHOCYTES # (AUTO) 1.5 K/uL (20.0-40.0); LYMPHOCYTES % (AUTO) 19.2 % (20.5-51.5); MEAN CORPUSCULAR HEMOGLOBIN 28.8 uug (24.7-32.8); MEAN CORPUSCULAR HGB CONC 33 g/dL (32.3-35.6); MEAN CORPUSCULAR VOLUME 87.3 fL (75.5-95.3); MONOCYTES # (AUTO) 0.9 K/uL (2.0-10.0); MONOCYTES % (AUTO) 11.3 % (0.0-11.0); NEUTROPHILS % (AUTO) 65.5 % (38.5-71.5); PLATELET COUNT (AUTO) 240 K/uL (179-408); WHITE BLOOD COUNT (AUTO) 7.6 K/uL (3.8-11.8)
--- NOTE | 2020-02-16 18:29 | NUR ---
CLINICAL PHARMACY NOTE:VANCOMYCIN DOSING Request for vancomycin dosing on 79 y/o female 5'10'' 192 lbs Bun from 02/10 23 Scr from 02/10 1.1 Temp 97.2 also on Zosyn Start vancomycin 1250mg ivpb [id number] estimated trough 15. Will order trough prior to 4th dose. Will continue to monitor
[2020-02-16 18:36] LABS: CARBON DIOXIDE 19 mmol/L (21-32); CHLORIDE 101 mmol/L (98-107); CREATININE 1.8 mg/dL (0.6-1.3); GLUCOSE 99 mg/dL (74-106); UREA NITROGEN, BLOOD 45 mg/dL (7-18)
[2020-02-16 18:41] LABS: ALANINE AMINOTRANSFERASE 34 U/L (14-59); ALKALINE PHOSPHATASE 105 U/L (50-136); ASPARTATE AMINOTRANSFERASE 33 U/L (15-37); BILIRUBIN,TOTAL 0.4 mg/dL (0.2-1.0); TOTAL PROTEIN, SERUM 6.6 g/dL (6.4-8.2)
--- NOTE | 2020-02-16 19:30 | NUR ---
RECEIVED PT AWAKE, ALERT AND ORIENTEDX3. PT IN NO ACUTE DISTRESS. IV INTACT EXCEPT ONE OF THE LUMEN(MAYO) NOT FLUSHING. PT WITH ILEOSTOMY AND ABDOMINAL BINDER. SAFETY AND COMFORT PROVIDED. WILL CONTINUE TO MONITOR.
[2020-02-16] MEDS ORDERED: VANCOMYCIN IV 1,250 MG in IV DEXTROSE 5% 250 ML IV SCH (20:00)
[2020-02-16] MEDS: IV NS 1000 ML 1,000 ML IV PRN (20:10)
[2020-02-16] MEDS: BLOOD SUGAR DIAGNOSTIC 1 EACH STRIP VI SCH (20:10)
[2020-02-16 21:21] VITALS: BP 106/60
[2020-02-16] MEDS: PIPERACILLIN SODIUM/TAZOBACTAM 3.375 G in IV DEXTROSE 5% 50 ML IV SCH (21:55)
[2020-02-17 00:42] VITALS: BP 100/54
--- NOTE | 2020-02-17 01:35 | NUR ---
HANDS OFF REPORT TO JOSE ANTONIO SALINAS. PT WHEELED OUT VIA [employer] . PT IN NO ACUTE DISTRESS. SAFETY AND COMFORT PROVIDED.VITAL SIGNS WITHIN NORMAL LIMIT.
[2020-02-17 01:50] VITALS: BP 101/50
[2020-02-17 04:02] VITALS: BP 104/41
[2020-02-17] MEDS: PIPERACILLIN SODIUM/TAZOBACTAM 3.375 G in IV DEXTROSE 5% 50 ML IV SCH ×3 (05:24→21:04)
[2020-02-17] MEDS: PANTOPRAZOLE SODIUM 40 MG TABLET.DR PO SCH (06:33)
[2020-02-17] MEDS: BLOOD SUGAR DIAGNOSTIC 1 EACH STRIP VI SCH ×4 (07:11→21:00)
[2020-02-17 07:14] LABS: BASOPHILS # (AUTO) 0.1 K/uL (0.0-8.0); BASOPHILS % (AUTO) 0.8 % (0.0-2.0); EOSINOPHILS # (AUTO) 0.2 K/uL (0.0-0.7); EOSINOPHILS % (AUTO) 3.5 % (0.0-7.0); HEMATOCRIT 33.1 % (31.2-41.9); HEMOGLOBIN 10.9 g/dL (10.9-14.3); LYMPHOCYTES % (AUTO) 14.9 % (20.5-51.5); MEAN CORPUSCULAR HEMOGLOBIN 28.8 uug (24.7-32.8); MEAN CORPUSCULAR HGB CONC 33 g/dL (32.3-35.6); MEAN CORPUSCULAR VOLUME 87.4 fL (75.5-95.3); MONOCYTES # (AUTO) 0.7 K/uL (2.0-10.0); MONOCYTES % (AUTO) 10.7 % (0.0-11.0); NEUTROPHILS # (AUTO) 4.9 K/uL (1.8-8.9); NEUTROPHILS % (AUTO) 70.1 % (38.5-71.5); PLATELET COUNT (AUTO) 229 K/uL (179-408); RED BLOOD CELL COUNT(AUTO) 3.78 MIL/uL (3.63-4.92)
[2020-02-17 07:24] LABS: ALANINE AMINOTRANSFERASE 35 U/L (14-59); ALKALINE PHOSPHATASE 107 U/L (50-136); ASPARTATE AMINOTRANSFERASE 34 U/L (15-37); BILIRUBIN,TOTAL 0.6 mg/dL (0.2-1.0); CARBON DIOXIDE 19 mmol/L (21-32); CHLORIDE 103 mmol/L (98-107); CREATININE 1.6 mg/dL (0.6-1.3); GLUCOSE 139 mg/dL (74-106); MAGNESIUM 1.8 mg/dL (1.8-2.4); PHOSPHOROUS 3.9 mg/dL (2.5-4.9); POTASSIUM 4.7 mmol/L (3.5-5.1); TOTAL PROTEIN, SERUM 6.5 g/dL (6.4-8.2); UREA NITROGEN, BLOOD 35 mg/dL (7-18)
[2020-02-17] MEDS: glipiZIDE 5 MG TABLET PO SCH ×2 (07:30→17:08)
[2020-02-17] MEDS ORDERED: MAGNESIUM HYDROXIDE 30 ML LIQUID UDC PO PRN (07:56)
[2020-02-17] MEDS ORDERED: METFORMIN HCL 500 MG TABLET PO SCH (08:00)
--- NOTE | 2020-02-17 08:48 | NUR ---
CLINICAL PHARMACY NOTE:VANCOMYCIN DOSING S: To continue vancomycin dosing on 79 y/o female for suspected infection (waiting for MD note) O: Bun 35 Scr 1.6 WBC 7.0 Temp 98.2 ht 170 cm wt 87 kg Plan Since srcr increased, will dose by random level. Patient received vancomycin 1250mg ivpb x1 on 02/15 at 2000. Will give vanco 1250mg IVPB x1 on 02/17 at 0400. Will check labs in am & order next vanco random for further dosing. Will continue to monitor
[2020-02-17 09:47] LABS: *BILIRUBIN,URIN NEGATIVE (NEGATIVE); *BLOOD, URINE NEGATIVE (NEGATIVE); *CLARITY,URINE SLIGHTLY CLOUDY (CLEAR); *COLOR,URINE YELLOW (YELLOW); *KETONES,URINE NEGATIVE (NEGATIVE); *UROBILINOGEN,URINE 0.2 E.U./dl (NORMAL); LEUKOCYTE ESTERASE ,URINE NEGATIVE (NEGATIVE); NITRITE, URINE NEGATIVE (NEGATIVE); PH,URINE 5.5 (5.0-8.0); UGLUCOSE NEGATIVE (NEGATIVE)
[2020-02-17 09:57] LABS: BACTERIA,URINE NONE SEEN /HPF (NONE SEEN); MUCUS,URINE FEW /LPF (0-FEW); RBC,URINE 0-3 /HPF (0-3); SQUAMOUS EPITHELIAL CELL,UR MODERATE /HPF (NONE SEEN); URINE AMORPHOUS URATE FEW /HPF
[2020-02-17] MEDS: DONEPEZIL 10 MG TABLET PO SCH (10:42)
[2020-02-17] MEDS: MEMANTINE HCL 10 MG TABLET PO SCH ×2 (10:42→17:07)
[2020-02-17 12:00] VITALS: BP 99/51
[2020-02-17] MEDS: IV NS 1000 ML 1,000 ML IV PRN (12:20)
[2020-02-17] MEDS: INSULIN REGULAR, HUMAN 300 UNIT/3 ML VIAL SQ PRN (12:23)
--- NOTE | 2020-02-17 13:29 | NUR ---
Pt received resting in bed, ileostomy bag filled to capacity, had burst open. New ileostomy bag placed, wound care provided to abdominal incision. No abd binder available throughout entire hospital, request sent to [facility] to deliver. No acute distress, no SOB, no pain noted. Pt refused morning insulin coverage for BS 133. Pt compliant with all other medications including afternoon BS coverage for BS 166. All comfort and safety measures implemented. Triple lumen R upper arm PICC line running 80ml/hr NS replaced, flushed 2/3 lumens patent, olmos not working. Poor appetite noted. Call light within reach. Will continue to monitor and follow up.
--- NOTE | 2020-02-17 15:23 | NUR ---
Pt seen by ITALIAN TEACHER, new order received to begin Megace 200mg Q12hr tonight to increase appetite. Pt crying saying "I miss my family I want to go home". Assisted Pt to call daughter, Jie on room telephone. All comfort and safety needs met at this time. Will continue to monitor.
[2020-02-17 16:00] VITALS: BP 107/58
[2020-02-17 19:30] VITALS: BP 93/51
--- NOTE | 2020-02-17 19:59 | NUR ---
Telephone call from lab/Yong Zuluaga reported patient COVID test is negative. Informed nurse/Mulu who is assigned to this patient.
[2020-02-17] MEDS: HEPARIN SODIUM,PORCINE 5,000 UNITS/ML VIAL SQ SCH (20:58)
[2020-02-17] MEDS: MEGESTROL ACETATE 400 MG/10 ML LIQUID UDC PO SCH (21:00)
[2020-02-17 23:54] LABS: *BILIRUBIN,URIN NEGATIVE (NEGATIVE); *BLOOD, URINE NEGATIVE (NEGATIVE); *CLARITY,URINE CLEAR (CLEAR); *COLOR,URINE YELLOW (YELLOW); *KETONES,URINE NEGATIVE (NEGATIVE); *UROBILINOGEN,URINE 0.2 E.U./dl (NORMAL); LEUKOCYTE ESTERASE ,URINE NEGATIVE (NEGATIVE); NITRITE, URINE NEGATIVE (NEGATIVE); UGLUCOSE NEGATIVE (NEGATIVE)
[2020-02-18] VITALS: BP 100/49
[2020-02-18 00:12] LABS: *CREATININE,URINE 129.1 mg/dL (30-125)
[2020-02-18 00:18] LABS: BACTERIA,URINE NONE SEEN /HPF (NONE SEEN); MUCUS,URINE FEW /LPF (0-FEW); RBC,URINE 0-3 /HPF (0-3); SQUAMOUS EPITHELIAL CELL,UR FEW /HPF (NONE SEEN); URINE AMORPHOUS URATE FEW /HPF
--- NOTE | 2020-02-18 02:20 | NUR ---
URINE COLLECTED AND SENT TO THE LAB.
[2020-02-18 04:00] VITALS: BP 110/54
[2020-02-18] MEDS ORDERED: VANCOMYCIN IV 1,250 MG in IV DEXTROSE 5% 250 ML IV ONE (04:00)
[2020-02-18] MEDS: IV NS 1000 ML 1,000 ML IV PRN ×2 (04:00→14:45)
[2020-02-18] MEDS: PANTOPRAZOLE SODIUM 40 MG TABLET.DR PO SCH (06:06)
[2020-02-18] MEDS: PIPERACILLIN SODIUM/TAZOBACTAM 3.375 G in IV DEXTROSE 5% 50 ML IV SCH ×3 (06:07→22:01)
[2020-02-18] MEDS: BLOOD SUGAR DIAGNOSTIC 1 EACH STRIP VI SCH ×4 (06:44→20:42)
[2020-02-18] MEDS: glipiZIDE 5 MG TABLET PO SCH ×2 (06:44→17:26)
--- NOTE | 2020-02-18 07:07 | NUR ---
RECEIVED PATIENT LYING BED WATCHING TV. NO SIGNS OF DISTRESS, NO SOB, DENIES ANY PAIN. PATIENT AXOX4, UPPER SORBIAN SPEAKING MAKES NEEDS KNOWN. COVID RESULTS CAME BACK NEGATIVE. BLOOD PRESSURE FLUCTUATED THROUGHOUT THE NIGHT, BUT REMAINED STABLE, ASYMPTOMATIC. NO FEVER. PATIENT COMPLIANT WITH ALL MEDICATION. NO COVERAGE WITH INSULIN NEEDED.TRIPLE LUMEN RIGHT UPPER ARM PICC LINE RUNNING 80ML/HR NS FLUSHED 2/3 LUMENS PATENT, VILLARREAL NOT WORKING, ANTIBIOTIC INFUSED, NO ADVERSE REACTIONS. POOR APPETITE, ASSISTED PATIENT WITH FLUID INTAKE, GAVE WATER AND ORANGE JUICE PER PATIENT REQUEST. EMPTIED ILEOSTOMY BAG 700CC. PATIENT VOIDED TWICE TONIGHT. ALL NEEDS ATTENDED TO, KEPT CLEAN DRY AND COMFORTABLE, PM CARE COMPLETED.WILL CONTINUE TO MONITOR. WILL ENDORSE REPORT TO NEXT SHIFT.
[2020-02-18 08:00] VITALS: BP 124/65
--- NOTE | 2020-02-18 08:00 | NUR ---
Abd incision noted serous drainage noted covered with surgical dressing. Ileostomy and colostomy draining well. Pt is in no acute distress. Call light is within reach.
[2020-02-18 08:05] VITALS: BP 124/65
[2020-02-18] MEDS: HEPARIN SODIUM,PORCINE 5,000 UNITS/ML VIAL SQ SCH ×2 (09:23→20:42)
[2020-02-18] MEDS: MEMANTINE HCL 10 MG TABLET PO SCH ×2 (09:23→17:26)
[2020-02-18] MEDS: DONEPEZIL 10 MG TABLET PO SCH (09:23)
[2020-02-18] MEDS: MEGESTROL ACETATE 400 MG/10 ML LIQUID UDC PO SCH ×2 (09:51→20:41)
[2020-02-18 10:33] LABS: BASOPHILS # (AUTO) 0.1 K/uL (0.0-8.0); BASOPHILS % (AUTO) 0.9 % (0.0-2.0); EOSINOPHILS # (AUTO) 0.3 K/uL (0.0-0.7); EOSINOPHILS % (AUTO) 4.1 % (0.0-7.0); HEMATOCRIT 30.6 % (31.2-41.9); HEMOGLOBIN 10.2 g/dL (10.9-14.3); LYMPHOCYTES # (AUTO) 1.1 K/uL (20.0-40.0); LYMPHOCYTES % (AUTO) 17.4 % (20.5-51.5); MEAN CORPUSCULAR HEMOGLOBIN 29.2 uug (24.7-32.8); MEAN CORPUSCULAR HGB CONC 33 g/dL (32.3-35.6); MONOCYTES # (AUTO) 0.6 K/uL (2.0-10.0); MONOCYTES % (AUTO) 9.7 % (0.0-11.0); NEUTROPHILS # (AUTO) 4.3 K/uL (1.8-8.9); NEUTROPHILS % (AUTO) 67.9 % (38.5-71.5); PLATELET COUNT (AUTO) 224 K/uL (179-408); RED BLOOD CELL COUNT(AUTO) 3.48 MIL/uL (3.63-4.92); WHITE BLOOD COUNT (AUTO) 6.3 K/uL (3.8-11.8)
[2020-02-18 10:43] LABS: BILIRUBIN,TOTAL 0.3 mg/dL (0.2-1.0); CREATININE 1.3 mg/dL (0.6-1.3); MAGNESIUM 2.3 mg/dL (1.8-2.4); PHOSPHOROUS 3.1 mg/dL (2.5-4.9); POTASSIUM 3.9 mmol/L (3.5-5.1); TOTAL PROTEIN, SERUM 6.3 g/dL (6.4-8.2)
--- NOTE | 2020-02-18 11:16 | NUR ---
CLINICAL PHARMACY NOTE:VANCOMYCIN DOSING S: To continue vancomycin dosing on 79 y/o female for suspected infection (waiting for MD note) O: Bun 31 Scr 1.3 WBC 6.3 Temp 98.1 ht 170 cm wt 87 kg Plan Since srcr has decreased, will start vanco 1250mg IV q26h for predicted vanco trough level of 16 mcg/ml at steady state. 2nd dose due tomorrow at 0600. Plan to order vanco trough level before 4th dose (not yet ordered). Will check srcr & adjust the dose if needed. Will continue to monitor
[2020-02-18] MEDS: INSULIN REGULAR, HUMAN 300 UNIT/3 ML VIAL SQ PRN (14:05)
[2020-02-18 16:07] VITALS: BP 126/63
--- NOTE | 2020-02-18 18:30 | NUR ---
Pt is in no acute distress. call light is within reach.
--- NOTE | 2020-02-18 19:45 | NUR ---
Received patient awake and alert. Patient shows no signs or symptoms of distress at this time. Patient is NSR on tele monitor. Bed set to lowest position. Call light within reach. Will continue to monitor patient.
[2020-02-18 20:16] VITALS: BP 138/64
[2020-02-19 04:16] VITALS: BP 132/64
[2020-02-19 04:20] VITALS: BP 138/63
[2020-02-19] MEDS: PIPERACILLIN SODIUM/TAZOBACTAM 3.375 G in IV DEXTROSE 5% 50 ML IV SCH ×2 (05:04→13:13)
[2020-02-19] MEDS: IV NS 1000 ML 1,000 ML IV PRN (05:50)
[2020-02-19] MEDS ORDERED: VANCOMYCIN IV 1,250 MG in IV DEXTROSE 5% 250 ML IV SCH (06:00)
[2020-02-19] MEDS: PANTOPRAZOLE SODIUM 40 MG TABLET.DR PO SCH (06:02)
[2020-02-19] MEDS: BLOOD SUGAR DIAGNOSTIC 1 EACH STRIP VI SCH ×2 (06:39→11:30)
--- NOTE | 2020-02-19 06:52 | NUR ---
Patient shows no signs or symptoms of distress at this time. Vital signs stable throughout the shift. NSR on tele monitor. PICC Line dressing changed. Bed set to lowest position. Call light within reach. Will endorse patient to day shift nurse in stable condition.
[2020-02-19 08:28] VITALS: BP_SYST 148; BP_SYST 150; BP_DIAS 58; BP_DIAS 75
[2020-02-19] MEDS: MEMANTINE HCL 10 MG TABLET PO SCH (08:46)
[2020-02-19] MEDS: DONEPEZIL 10 MG TABLET PO SCH (08:46)
[2020-02-19] MEDS: MEGESTROL ACETATE 400 MG/10 ML LIQUID UDC PO SCH (08:46)
[2020-02-19] MEDS: glipiZIDE 5 MG TABLET PO SCH (08:46)
[2020-02-19] MEDS: HEPARIN SODIUM,PORCINE 5,000 UNITS/ML VIAL SQ SCH (08:48)
[2020-02-19 09:02] VITALS: BP 148/75
--- NOTE | 2020-02-19 11:23 | NUR ---
Pt in fair condition to transfer to acute rehab. Patient vital signs are stable. No SOB noted. Denies pain. No s/s of acute distress.
[2020-02-19 11:50] VITALS: BP 124/61
[2020-02-19] MEDS ORDERED: ACET-2154 PO (15:23)
[2020-02-19] MEDS ORDERED: ondansetron IV (15:23)
[2020-02-19] MEDS ORDERED: PIPE3.3749 IV (15:23)
[2020-02-19] MEDS ORDERED: MEGE400O5 PO (15:23)
[2020-02-19] MEDS ORDERED: morphine sulfate IV (15:23)
[2020-02-19] MEDS ORDERED: HEPA500034 SUBCON (15:23)
[2020-02-20 08:06] LABS: A/G RATIO 0.8 (0.7-1.7); ALBUMIN 2.5 g/dL (2.9-4.4); ALPHA-1-GLOBULIN 0.3 g/dL (0.0-0.4); BETA GLOBULIN 1.2 g/dL (0.7-1.3); GAMMA GLOBULIN 0.8 g/dL (0.4-1.8); GLOBULIN, TOTAL 3.2 g/dL (2.2-3.9); M-SPIKE Not Observed g/dL (Not Observed)
== END 2020-02-19 13:30 | DRG 720 ==
LOC: TELE3 16:59 → TELE 02-17 02:00 → TELE3 02-18 14:35
PROVIDERS: ADMIT Internal Medicine; ATTEND Internal Medicine
DX: A41.9 Sepsis, unspecified organism (principal); N17.0 Acute kidney failure with tubular necrosis; E43 Unspecified severe protein-calorie malnutrition; G92 Toxic encephalopathy; I95.9 Hypotension, unspecified; E11.65 Type 2 diabetes mellitus with hyperglycemia; D64.9 Anemia, unspecified; E66.01 Morbid (severe) obesity due to excess calories; E88.09 Other disorders of plasma-protein metabolism, not elsewhere classified; F03.90 Unspecified dementia, unspecified severity, without behavioral disturbance, psychotic disturbance, mood disturbance, and anxiety; E83.42 Hypomagnesemia; Z87.11 Personal history of peptic ulcer disease; Z90.49 Acquired absence of other specified parts of digestive tract; I11.9 Hypertensive heart disease without heart failure; K43.5 Parastomal hernia without obstruction or gangrene; Z93.2 Ileostomy status; R53.1 Weakness; Z68.30 Body mass index [BMI] 30.0-30.9, adult; K57.80 Diverticulitis of intestine, part unspecified, with perforation and abscess without bleeding; K29.00 Acute gastritis without bleeding; Z79.84 Long term (current) use of oral hypoglycemic drugs
CPT/HCPCS: 36415; 70030-TC; 71045; 83605; 83735; 83970; 84100; 84155; 84156; 84165; 84300; 85025; 87040; 87086; 93005; G0378; J1644; J1815; J2543; J7030; J7060; J8999; U0003-CS

== ENCOUNTER 2020-02-19 10:45 | Inpatient (IN) | payer OTHER ==
[~2020-02-19] VITALS: Ht 170.2 cm; Wt 87.1 kg
[~2020-02-19 10:45] MED LIST changes: -AMLO10TA7 PO; -AMOX500C2 PO; -CHOL200013; -CLAR-45 PO; +GLIP5TAB13 PO; +METF-442 PO; -METH4TAB17 PO; -PRED2.5T PO; -SITA100T PO; +ZOLP5TAB2 PO
[2020-02-19] MEDS ORDERED: Z GUARD REMEDY PASTE 57 GM TUBE TOP PRN (14:15)
[2020-02-19] MEDS ORDERED: HEPA500034 SUBCON (15:23)
[2020-02-19] MEDS ORDERED: PIPE3.3749 IV (15:23)
[2020-02-19] MEDS ORDERED: morphine sulfate IV (15:23)
[2020-02-19] MEDS ORDERED: MEGE400O5 PO (15:23)
[2020-02-19] MEDS ORDERED: ACET-2154 PO (15:23)
[2020-02-19] MEDS ORDERED: ondansetron IV (15:23)
[2020-02-19 16:00] VITALS: BP 144/77
--- NOTE | 2020-02-19 19:46 | NUR ---
Received patient in bed. AAO x3. No acute distress or SOB was noted. Urdu speaking but can communicate a little in Albanian. No complain of pain at this time. On room air. Physical assessment done. safety measures maintain, fall prevention observed. Skin assessed. Abdominal binder covered surgical site. Ileostomy placed on right side of abdomen. Triple lumen PICC line in right upper arm, no sign of inflammation. Bed in locked and low position, side rails up x2 for safety, bed alarm on. Call light and frequently using items within reach. Continue to monitor.
[2020-02-19 20:14] VITALS: BP 159/81
[2020-02-19] MEDS ORDERED: MAGNESIUM HYDROXIDE 30 ML LIQUID UDC PO PRN (20:15)
[2020-02-19] MEDS ORDERED: DEXTROSE 50% 50 ML DISP.SYRIN IV PRN (20:15)
[2020-02-19] MEDS ORDERED: ACETAMINOPHEN 325 MG TABLET PO PRN (20:15)
[2020-02-19] MEDS ORDERED: BLOOD SUGAR DIAGNOSTIC 1 EACH STRIP VI SCH (21:00)
[2020-02-19] MEDS: HEPARIN SODIUM,PORCINE 5,000 UNITS/ML VIAL SQ SCH (21:00)
[2020-02-19] MEDS ORDERED: MEGESTROL ACETATE 200 MG PO SCH (21:00)
[2020-02-19] MEDS: BLOOD SUGAR DIAGNOSTIC 1 EACH STRIP VI SCH (21:08)
[2020-02-19] MEDS: PIPERACILLIN/TAZOBACTAM/D5W 3.375 G in IV DEXTROSE 5% 50 ML IV SCH (21:21)
[2020-02-19] MEDS: ZOLPIDEM 5 MG TABLET PO PRN (21:25)
[2020-02-19] MEDS ORDERED: PIPERACILLIN SODIUM/TAZO 3.375 GM VIAL IV SCH (22:00)
[2020-02-20 04:53] VITALS: BP 138/72
[2020-02-20] MEDS: PIPERACILLIN/TAZOBACTAM/D5W 3.375 G in IV DEXTROSE 5% 50 ML IV SCH ×2 (05:17→15:24)
[2020-02-20] MEDS: BLOOD SUGAR DIAGNOSTIC 1 EACH STRIP VI SCH ×4 (07:35→20:33)
[2020-02-20] MEDS: glipiZIDE 5 MG TABLET PO SCH ×2 (09:03→17:12)
[2020-02-20] MEDS: DONEPEZIL 10 MG TABLET PO SCH (09:03)
[2020-02-20] MEDS: MEMANTINE HCL 10 MG TABLET PO SCH ×2 (09:04→17:12)
[2020-02-20] MEDS: PANTOPRAZOLE SODIUM 40 MG TABLET.DR PO SCH (09:12)
[2020-02-20] MEDS: HEPARIN SODIUM,PORCINE 5,000 UNITS/ML VIAL SQ SCH ×2 (09:15→20:40)
[2020-02-20] MEDS: MEGESTROL ACETATE 400 MG/10 ML LIQUID UDC PO SCH ×2 (09:17→20:55)
[2020-02-20 12:12] VITALS: BP 135/71
[2020-02-20] MEDS: INSULIN REGULAR, HUMAN 300 UNIT/3 ML VIAL SQ PRN ×3 (12:49→20:33)
[2020-02-20 16:25] VITALS: BP 138/71
[2020-02-20 20:00] VITALS: BP 130/63
--- NOTE | 2020-02-20 21:20 | NUR ---
Received pt sleeping comfortably. Aroused easily to verbal stimuli. Alert and oriented x2-3. Bengali speaking, able to make needs known. No acute distress noted. Denies pain/ discomfort. Due meds given as ordered. Accucheck 129, no insulin coverage as per sliding scale. Karen Barakat NP seen pt and discontinued Zosyn. Pt has ileostomy, patent and intact. IV line, patent and intact. Safety measures maintained. Call light and personal items within reach. Will continue to monitor.
[2020-02-21] MEDS: ZOLPIDEM 5 MG TABLET PO PRN ×2 (00:51→20:18)
[2020-02-21] MEDS: PANTOPRAZOLE SODIUM 40 MG TABLET.DR PO SCH (06:12)
[2020-02-21 06:16] VITALS: BP 150/80
[2020-02-21] MEDS: HEPARIN SODIUM,PORCINE 5,000 UNITS/ML VIAL SQ SCH ×2 (08:49→20:03)
[2020-02-21] MEDS: MEGESTROL ACETATE 400 MG/10 ML LIQUID UDC PO SCH ×2 (08:52→20:02)
[2020-02-21] MEDS: DONEPEZIL 10 MG TABLET PO SCH (08:52)
[2020-02-21] MEDS: MEMANTINE HCL 10 MG TABLET PO SCH ×2 (08:52→16:23)
[2020-02-21] MEDS: glipiZIDE 5 MG TABLET PO SCH ×2 (09:00→16:22)
[2020-02-21 09:22] VITALS: BP 141/80
--- NOTE | 2020-02-21 13:48 | NUR ---
Received patient awake in bed in stable condition. Patient participates with therapy for ADL activities. tolerated well. no complaint of pain/discomfort. Patient crying once in a while. verbalize that she wants to go home. Advice patient will ff up with the doctor. Patient consumed well during meals. Patient wound, cleanse and change dressing, healing well. Patient ileostomy bag change done. Patient liquid and soft brown color stool noted. no foul smell noted. Patient compliant with medication. will continue monitor
--- NOTE | 2020-02-21 14:13 | NUR ---
INTERDISCIPLINARY TEAM CONFERENCE
[2020-02-21 16:07] VITALS: BP 127/70
--- NOTE | 2020-02-21 21:30 | NUR ---
Received pt resting in bed and watching tv. AAO x3. Divehi speaking, able to make needs known. No acute distress noted. Denies pain/ discomfort. Right upper arm central line flushing well. Ileostomy bag, patent and intact. Safety measures maintained. Call light and personal items within reach. Will continue to monitor.
[2020-02-22 04:00] VITALS: BP 134/68
[2020-02-22] MEDS: PANTOPRAZOLE SODIUM 40 MG TABLET.DR PO SCH (06:08)
[2020-02-22 07:56] VITALS: BP 163/69
[2020-02-22] MEDS: DONEPEZIL 10 MG TABLET PO SCH (08:34)
[2020-02-22] MEDS: glipiZIDE 5 MG TABLET PO SCH ×2 (08:34→17:34)
[2020-02-22] MEDS: MEMANTINE HCL 10 MG TABLET PO SCH ×2 (08:34→17:34)
[2020-02-22] MEDS: HEPARIN SODIUM,PORCINE 5,000 UNITS/ML VIAL SQ SCH ×2 (08:38→21:28)
[2020-02-22] MEDS: MEGESTROL ACETATE 400 MG/10 ML LIQUID UDC PO SCH ×2 (08:40→21:27)
--- NOTE | 2020-02-22 11:00 | NUR ---
Received patient in room awake, No acute distress; patient able to verbally express needs. Patient is A/O x 2. NO c/o pain at this time. Vital signs stable for patient. Picc line on right upper arm intact. Due meds administered as ordered and scheduled and tolerated well. Ileostomy bag intact and draining well. Skin kept clean and dry. Patient on continuos PT/OT therapy. Patient is with maximum assist for care. Needs attended, safety measures in place, call light left at bed side and will continue with care.
[2020-02-22 16:41] VITALS: BP 132/81
--- NOTE | 2020-02-22 19:00 | NUR ---
RECD PT IN BED, ALERT ,ORIENTED X1, SLOVENIAN SPEAKING, NO ACUTE DISTRESS NOTED.IV SITE MIDLINE ON RT,UPPER ARM,ABDOMINAL DRESSING DRY AND INTACT.ILEOSTOMY IN PLACE.
[2020-02-22 20:18] VITALS: BP 146/71
--- NOTE | 2020-02-23 01:00 | NUR ---
SLEPT AT LONG INTERVALS,REPOSITIONED FOR COMFORT.NEEDS ATTENDED TO.
[2020-02-23 05:06] VITALS: BP 132/71
[2020-02-23 05:59] LABS: BASOPHILS % (AUTO) 0.7 % (0.0-2.0); EOSINOPHILS # (AUTO) 0.1 K/uL (0.0-0.7); EOSINOPHILS % (AUTO) 2.6 % (0.0-7.0); HEMATOCRIT 29.4 % (31.2-41.9); HEMOGLOBIN 9.9 g/dL (10.9-14.3); LYMPHOCYTES # (AUTO) 1.6 K/uL (20.0-40.0); LYMPHOCYTES % (AUTO) 28.3 % (20.5-51.5); MEAN CORPUSCULAR HGB CONC 34 g/dL (32.3-35.6); MEAN CORPUSCULAR VOLUME 86.7 fL (75.5-95.3); MONOCYTES # (AUTO) 0.5 K/uL (2.0-10.0); MONOCYTES % (AUTO) 8.1 % (0.0-11.0); NEUTROPHILS # (AUTO) 3.4 K/uL (1.8-8.9); NEUTROPHILS % (AUTO) 60.3 % (38.5-71.5); PLATELET COUNT (AUTO) 256 K/uL (179-408); WHITE BLOOD COUNT (AUTO) 5.6 K/uL (3.8-11.8)
--- NOTE | 2020-02-23 06:02 | NUR ---
had a quiet nite,no complaints presented.endorsed to am nurse in fair condition.
[2020-02-23 06:04] LABS: PHOSPHOROUS 3.3 mg/dL (2.5-4.9); POTASSIUM 4.1 mmol/L (3.5-5.1)
[2020-02-23 06:05] LABS: MAGNESIUM 1.2 mg/dL (1.8-2.4)
[2020-02-23] MEDS: PANTOPRAZOLE SODIUM 40 MG TABLET.DR PO SCH (06:49)
[2020-02-23] MEDS: glipiZIDE 5 MG TABLET PO SCH ×2 (07:30→17:55)
[2020-02-23 08:00] VITALS: BP 143/72
[2020-02-23] MEDS: DONEPEZIL 10 MG TABLET PO SCH (10:35)
[2020-02-23] MEDS: MEMANTINE HCL 10 MG TABLET PO SCH ×2 (10:35→17:55)
[2020-02-23] MEDS: MEGESTROL ACETATE 400 MG/10 ML LIQUID UDC PO SCH ×2 (10:36→21:04)
[2020-02-23] MEDS: HEPARIN SODIUM,PORCINE 5,000 UNITS/ML VIAL SQ SCH ×2 (10:38→21:04)
[2020-02-23 12:00] VITALS: BP 158/73
[2020-02-23] MEDS ORDERED: MAGNESIUM OXIDE 400 MG TABLET PO ONE (12:00)
[2020-02-23 16:00] VITALS: BP 147/86
--- NOTE | 2020-02-23 19:00 | NUR ---
Patient in bed, resting. Alert awake x3. Patient denies any acute distress or pain. Patient on room air and saturating WNL. Patient's R upper arm PICC line is intact and patent. Patient's vitals stable. Safety measures in place. Bed low and locked in position. Bed alarm on. Will continue with the plan of care.
--- NOTE | 2020-02-23 19:30 | NUR ---
Patient has ileostomy bag with liquid and soft brown stool noted. Will clean and change bag accordingly.
[2020-02-23 20:05] VITALS: BP 161/71
[2020-02-24 04:42] VITALS: BP 134/62
[2020-02-24] MEDS: PANTOPRAZOLE SODIUM 40 MG TABLET.DR PO SCH (06:25)
[2020-02-24] MEDS: glipiZIDE 5 MG TABLET PO SCH ×2 (06:31→17:31)
--- NOTE | 2020-02-24 06:57 | NUR ---
Patient slept throughout the night. Patient is awake and denies any acute distress or pain at this time. Patient's vitals stable. Triple lumen PICC line in the R. upper arm intact and no sign of inflammation. Ileostomy bag changed, clean and no foul smell noted. No sign of inflammation or drainage on the stoma. Abdominal incision site is intact, clean and no drainage noted. Fall precaution maintained. Prescribed medication were given, patient was compliant. Needs attended. Safety measures in place. Bed low and locked position. Call light within reach. Bed alarm on. Will endorse to the oncoming nurse for the continuity of care.
[2020-02-24 08:00] VITALS: BP 132/78
[2020-02-24] MEDS: MEGESTROL ACETATE 400 MG/10 ML LIQUID UDC PO SCH ×2 (09:02→20:30)
[2020-02-24] MEDS: DONEPEZIL 10 MG TABLET PO SCH (09:02)
[2020-02-24] MEDS: MEMANTINE HCL 10 MG TABLET PO SCH ×2 (09:02→17:31)
[2020-02-24] MEDS: HEPARIN SODIUM,PORCINE 5,000 UNITS/ML VIAL SQ SCH ×2 (09:09→20:30)
--- NOTE | 2020-02-24 09:40 | NUR ---
Patient noted sitting up in bed eating breakfast, no complaints of pain at this time, no signs of distress, took all AM medications, all needs met, call light in reach, bed locked and in lowest position
[2020-02-24] MEDS ORDERED: MAGNESIUM OXIDE 400 MG TABLET PO ONE (10:45)
[2020-02-24 15:44] VITALS: BP 153/80
--- NOTE | 2020-02-24 18:54 | NUR ---
No changes this shift, abd. dressing in place, all needs met
[2020-02-24 20:21] VITALS: BP 163/85
[2020-02-25 04:53] VITALS: BP 144/77
[2020-02-25 06:12] LABS: BASOPHILS % (AUTO) 0.8 % (0.0-2.0); EOSINOPHILS # (AUTO) 0.1 K/uL (0.0-0.7); EOSINOPHILS % (AUTO) 2.3 % (0.0-7.0); LYMPHOCYTES # (AUTO) 1.6 K/uL (20.0-40.0); LYMPHOCYTES % (AUTO) 25.4 % (20.5-51.5); MEAN CORPUSCULAR HEMOGLOBIN 28.8 uug (24.7-32.8); MEAN CORPUSCULAR HGB CONC 33 g/dL (32.3-35.6); MEAN CORPUSCULAR VOLUME 86.8 fL (75.5-95.3); MONOCYTES # (AUTO) 0.7 K/uL (2.0-10.0); MONOCYTES % (AUTO) 10.7 % (0.0-11.0); NEUTROPHILS # (AUTO) 3.8 K/uL (1.8-8.9); NEUTROPHILS % (AUTO) 60.8 % (38.5-71.5); PLATELET COUNT (AUTO) 290 K/uL (179-408); RED BLOOD CELL COUNT(AUTO) 3.82 MIL/uL (3.63-4.92); WHITE BLOOD COUNT (AUTO) 6.2 K/uL (3.8-11.8)
[2020-02-25] MEDS: PANTOPRAZOLE SODIUM 40 MG TABLET.DR PO SCH (06:23)
[2020-02-25 06:26] LABS: CREATININE 0.9 mg/dL (0.6-1.3); MAGNESIUM 1.3 mg/dL (1.8-2.4); PHOSPHOROUS 3.8 mg/dL (2.5-4.9); POTASSIUM 3.7 mmol/L (3.5-5.1)
[2020-02-25 06:34] LABS: HEMATOCRIT 33.1 % (31.2-41.9)
[2020-02-25] MEDS: glipiZIDE 5 MG TABLET PO SCH ×2 (06:34→16:19)
--- NOTE | 2020-02-25 06:56 | NUR ---
Patient received resting in bed. Axox 3-4, need reorientation. no signs and symptoms of distress, no SOB. Patient took all due medication as tolerable. Patient requested food, gave turkey sandwich and a snack, 100% consumed. Patients vitals remain stable, denies any pain or discomfort. Triple lumen PICC line in the R. upper arm intact, olmos one not working. Ileostomy bag drained 900 cc, intact. Abdominal incision site is intact, clean and no drainage noted. Fall precaution maintained. Safety measures in place. Bed low and locked position. Call light within reach. Bed alarm on.All need attended to, pm care completed and patient kept clean dry and comfortable. Will endorse accordingly to the oncoming nurse.
[2020-02-25 08:00] VITALS: BP 160/79
[2020-02-25] MEDS: MEGESTROL ACETATE 400 MG/10 ML LIQUID UDC PO SCH ×2 (09:09→21:09)
[2020-02-25] MEDS: DONEPEZIL 10 MG TABLET PO SCH (09:09)
[2020-02-25] MEDS: MEMANTINE HCL 10 MG TABLET PO SCH ×2 (09:10→16:19)
[2020-02-25] MEDS: HEPARIN SODIUM,PORCINE 5,000 UNITS/ML VIAL SQ SCH (09:13)
[2020-02-25] MEDS: MAGNESIUM SULFATE/D5W 100 ML IV SCH ×2 (12:14→13:48)
[2020-02-25 15:55] VITALS: BP 114/69
[2020-02-25 20:14] VITALS: BP 140/72
--- NOTE | 2020-02-25 23:03 | NUR ---
Received pt resting in bed and watching tv. AAO x3. Faroese speaking, able to make needs known. No acute distress noted. Denies pain/ discomfort. Due med given as ordered. Right upper arm central line flushing well. Ileostomy bag, patent and intact. Abdominal incision site is clean, no s/s of infection. Safety measures maintained. Call light and personal items within reach. Will continue to monitor.
[2020-02-26] MEDS: PANTOPRAZOLE SODIUM 40 MG TABLET.DR PO SCH (06:31)
[2020-02-26 06:47] VITALS: BP 132/68
--- NOTE | 2020-02-26 07:04 | NUR ---
Ileostomy bag changed. Skin care rendered. All needs attended to promptly.
[2020-02-26 08:00] VITALS: BP 146/79
[2020-02-26] MEDS: glipiZIDE 5 MG TABLET PO SCH ×2 (08:31→16:52)
[2020-02-26] MEDS: DONEPEZIL 10 MG TABLET PO SCH (08:31)
[2020-02-26] MEDS: MEMANTINE HCL 10 MG TABLET PO SCH ×2 (08:31→16:52)
[2020-02-26] MEDS: MEGESTROL ACETATE 400 MG/10 ML LIQUID UDC PO SCH ×2 (08:32→20:39)
--- NOTE | 2020-02-26 11:30 | NUR ---
Patient AAO x 2, able to verbally express needs. Patient is A/O x 2. NO c/o pain during assessment. Vital signs stable for patient. PICC line on right upper arm intact. Due meds administered as ordered and scheduled and tolerated well.Patient on PT/OT therapy. Patient is with max assist for care. Ileostomy bag intact and draining well. Patient teaching given on Ileostomy care. Skin kept clean and dry. Needs attended, safety measures in place, call light left at bed side and will continue with care.
[2020-02-26 15:58] VITALS: BP 136/81
--- NOTE | 2020-02-26 19:30 | NUR ---
RECEIVED PT IN NO ACUTE DISTRESS. IV INTACT. COLOSTOMY INTACT. SAFETY AND COMFORT PROVIDED. WILL CONTINUE TO MONITOR.
[2020-02-26 20:12] VITALS: BP 138/73
--- NOTE | 2020-02-26 22:30 | NUR ---
HANDS OFF REPORT TO DELIA SALINAS. PT IN NO ACUTE DISTRESS.SAFETY AND COMFORT PROVIDED.
--- NOTE | 2020-02-26 22:30 | NUR ---
Received report from RITA Horner for continuity of care. Patient in no distress. Repositioned and made comfortable. Ileostomy bag noted. Right upper arm PICC line patent and intact. Safety measures initiated, Will continue to monitor.
[2020-02-27 04:00] VITALS: BP 140/67
--- NOTE | 2020-02-27 04:14 | NUR ---
COVID result came back negative
[2020-02-27 06:03] LABS: BASOPHILS % (AUTO) 0.5 % (0.0-2.0); EOSINOPHILS # (AUTO) 0.1 K/uL (0.0-0.7); EOSINOPHILS % (AUTO) 1.4 % (0.0-7.0); HEMATOCRIT 31.8 % (31.2-41.9); HEMOGLOBIN 10.6 g/dL (10.9-14.3); LYMPHOCYTES # (AUTO) 1.8 K/uL (20.0-40.0); MEAN CORPUSCULAR HEMOGLOBIN 28.9 uug (24.7-32.8); MEAN CORPUSCULAR HGB CONC 33 g/dL (32.3-35.6); MEAN CORPUSCULAR VOLUME 86.8 fL (75.5-95.3); MONOCYTES # (AUTO) 0.7 K/uL (2.0-10.0); MONOCYTES % (AUTO) 11.2 % (0.0-11.0); NEUTROPHILS # (AUTO) 3.6 K/uL (1.8-8.9); NEUTROPHILS % (AUTO) 57.9 % (38.5-71.5); PLATELET COUNT (AUTO) 280 K/uL (179-408); RED BLOOD CELL COUNT(AUTO) 3.67 MIL/uL (3.63-4.92); WHITE BLOOD COUNT (AUTO) 6.3 K/uL (3.8-11.8)
[2020-02-27 06:07] LABS: CREATININE 0.9 mg/dL (0.6-1.3); MAGNESIUM 1.5 mg/dL (1.8-2.4); PHOSPHOROUS 3.3 mg/dL (2.5-4.9)
[2020-02-27] MEDS: glipiZIDE 5 MG TABLET PO SCH ×2 (06:30→17:04)
[2020-02-27] MEDS: PANTOPRAZOLE SODIUM 40 MG TABLET.DR PO SCH (06:30)
[2020-02-27 07:30] VITALS: BP 151/77
[2020-02-27] MEDS: DONEPEZIL 10 MG TABLET PO SCH (09:14)
[2020-02-27] MEDS: MEMANTINE HCL 10 MG TABLET PO SCH ×2 (09:14→17:03)
[2020-02-27] MEDS: MEGESTROL ACETATE 400 MG/10 ML LIQUID UDC PO SCH ×2 (09:14→20:33)
--- NOTE | 2020-02-27 12:52 | NUR ---
Received patient awake in bed in stable condition. Patient will be discharge tomorrow for assisted living [facility]. TMS in the chart. Patient continue with ileostomy. Change bag every shift and if needed. Patient abdominal suture healing well. Change dressing done. not in distress. no episode of crying during rounds. Patient continue therapy for increase strenght and endurance. tolerated well. no complaint of pain/discomfort noted. will continue monitor
[2020-02-27] MEDS ORDERED: MAGNESIUM OXIDE 400 MG TABLET PO ONE (14:45)
[2020-02-27 15:51] VITALS: BP 150/78
--- NOTE | 2020-02-27 19:58 | NUR ---
Received patient resting in bed, easily to arouse. no signs of acute distress noted. No complaints of pain or SOB. Right upper arm PICC line intact, 2 lumens working, 1 not working. Ileostomy noted on the right quadrant and abdominal dressing is clean and intact. Safety measures initiated. Bed is low and locked, call light within reach. Will continue to monitor
[2020-02-27 20:06] VITALS: BP 134/76
[2020-02-28 04:09] VITALS: BP 137/74
[2020-02-28] MEDS: PANTOPRAZOLE SODIUM 40 MG TABLET.DR PO SCH (06:23)
[2020-02-28] MEDS: glipiZIDE 5 MG TABLET PO SCH (06:39)
[2020-02-28 08:00] VITALS: BP 139/82
[2020-02-28] MEDS: MEGESTROL ACETATE 400 MG/10 ML LIQUID UDC PO SCH (08:37)
[2020-02-28] MEDS: MEMANTINE HCL 10 MG TABLET PO SCH (08:38)
[2020-02-28] MEDS: DONEPEZIL 10 MG TABLET PO SCH (08:38)
--- NOTE | 2020-02-28 14:23 | NUR ---
ILEOSTOMY SITE CHANGED, ABDOMINAL INCISION SITE CLEANSED WITH NS PAT DRY AND COVERED WITH ADHESIVE DRESSING.
--- NOTE | 2020-02-28 14:24 | NUR ---
In stable condition, No acute distress noted and will continue with care.
[2020-02-28 15:12] VITALS: BP 148/80
--- NOTE | 2020-02-28 17:47 | NUR ---
DISCHARGE SUMMERY: Patient AAO x 2-3, able to express self. All due meds administered. Vital signs stable for patient. Medications reconciled by Dr. Yoon. PICC line on right upper arm removed by RN supervisor agricultural education, line intact no breakage noted. NO bleeding noted. Site covered with dressing and applied pressure. Abdominal surgical site dry and intact, No s/sx infection noted. Cleansed with NS pat dried and covered with dressing. Ileostomy site cleansed and changed. Stoma draining well with loose brown stool. Patient educated on Ostomy care. Pictures taken. Patient also educated on medication administration. All discharge paper works signed. Ileostomy bags given to patient that can last till Monday per mental health case manager. All other needs attended. Safety measures in place. Patient taken by STANISLAV West via gurney and left at 16:20pm.
[2020-02-29 12:43] LABS: ALANINE AMINOTRANSFERASE 24 U/L (14-59); ALKALINE PHOSPHATASE 69 U/L (50-136); ASPARTATE AMINOTRANSFERASE 30 U/L (15-37); BILIRUBIN,DIRECT < 0.1 mg/dL (0.0-0.2); BILIRUBIN,TOTAL 0.2 mg/dL (0.2-1.0); TOTAL PROTEIN, SERUM 6.7 g/dL (6.4-8.2)
== END 2020-02-28 16:20 | disposition home health service (06) | DRG 720 ==
PROVIDERS: ADMIT Physical Medicine & Rehabilitation Pain Medicine; ATTEND Physical Medicine & Rehabilitation Pain Medicine
DX: A41.9 Sepsis, unspecified organism (principal); N17.0 Acute kidney failure with tubular necrosis; E43 Unspecified severe protein-calorie malnutrition; G92 Toxic encephalopathy; E66.01 Morbid (severe) obesity due to excess calories; K57.80 Diverticulitis of intestine, part unspecified, with perforation and abscess without bleeding; E11.65 Type 2 diabetes mellitus with hyperglycemia; E11.69 Type 2 diabetes mellitus with other specified complication; I11.9 Hypertensive heart disease without heart failure; I15.2 Hypertension secondary to endocrine disorders; K43.5 Parastomal hernia without obstruction or gangrene; F03.90 Unspecified dementia, unspecified severity, without behavioral disturbance, psychotic disturbance, mood disturbance, and anxiety; E78.5 Hyperlipidemia, unspecified; E83.42 Hypomagnesemia; K29.00 Acute gastritis without bleeding; Z68.30 Body mass index [BMI] 30.0-30.9, adult; K21.9 Gastro-esophageal reflux disease without esophagitis; Z16.12 Extended spectrum beta lactamase (ESBL) resistance; D50.0 Iron deficiency anemia secondary to blood loss (chronic); Z93.2 Ileostomy status; Z93.3 Colostomy status; R53.81 Other malaise
CPT/HCPCS: 36415; 83735; 84100; 85025; A4663; J1644; J1815; J2543; J3475; J7030; J7060; J8999; U0003-CS